=== PATIENT | male | born 1980 | race African-American/Black ===

== ENCOUNTER 2020-12-14 00:13 | Emergency (ER) | payer MEDICAID, OTHER ==
[~2020-12-14] VITALS: Ht 177.8 cm; Wt 91.0 kg
[2020-12-14] MEDS ORDERED: MORPHINE SULFATE 4 MG/ML CPJ (NOT FOR IM USE) IV STA (01:09)
[2020-12-14 01:25] LABS: EOSINOPHILS % 5.3 % (0.0-5.0); HEMATOCRIT. 39.4 % (42.0-52.0); HEMOGLOBIN. 14.2 g/dL (14.0-18.0); LYMPHOCYTES % 33.1 % (20.0-50.0); MEAN CORPUSCULAR HEMOGLOBIN 29.9 pg (28.0-32.0); MEAN CORPUSCULAR VOLUME 83.2 fL (80.0-94.0); MEAN PLATELET VOLUME 7.4 fl (7.4-10.4); MONOCYTES % 6.6 % (2.0-8.0); PLATELET 364 x1000/uL (130-400); RED BLOOD CELL COUNT 4.74 mill/uL (4.7-6.1); RED CELL DISTRIBUTION WIDTH 14.2 % (11.6-14.6)
[2020-12-14] MEDS: CEFAZOLIN 1000MG PREMIX 50 ML IV ONE (01:28)
[2020-12-14] MEDS: MORPHINE SULFATE 2 MG/ML CPJ (NOT FOR IM USE) IV NR (01:29)
[2020-12-14] MEDS: ONDANSETRON HCL 4MG/2ML INJ IV STA (01:29)
[2020-12-14] MEDS: TETANUS, DIPHTHERIA, PERTUSSIS VAC/PF 0.5ML (>10YR OLD) IM ONE (01:30)
[2020-12-14] MEDS: SODIUM CHLORIDE 0.9% 1,000 ML IV ONE (01:30)
[2020-12-14] MEDS: BACITRACIN ZINC OINT UDPKT TOP ONE (01:30)
[2020-12-14 01:31] LABS: CHLORIDE 103 mEq/L (98-107)
[2020-12-14] MEDS ORDERED: CEPH500T MT (05:19)
[2020-12-14] MEDS ORDERED: IBUP-2029 MT (05:19)
[2020-12-14 05:47] VITALS: BP 136/81
[2020-12-14] MEDS ORDERED: IOHEXOL-300 100 ML BOTTLE ONE (06:10)
== END 2020-12-14 06:02 | disposition home or self-care (01) ==
LOC: ER 00:13
DX: R51.9 Headache, unspecified (principal)
CPT/HCPCS: 36415; 70450; 70486; 71045; 71260; 72125; 74177; 80053; 85025; 86850; 86900; 86901; 90471; 90715; 96365; 96375; 99291; J0690; J2270; J2405; J7030; Q9967